=== PATIENT | male | born 2000 | race Caucasian/White ===

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

== ENCOUNTER 2024-11-19 10:28 | Emergency (ER) | payer MEDICAID, OTHER ==
[~2024-11-19] VITALS: Ht 177.8 cm; Wt 71.6 kg
--- NOTE | 2024-11-19 10:44 | Physician Documentation ---
History of Present Illness ~ Chief Complaint: Laceration Stated Complaint: FINGER LAC Time Seen by MD: 10:36 Source: patient Mode of Arrival: POV Exam Limitations: no limitations HPI 24-year-old male with chief complaint left index finger pain with laceration that occurred just prior to arrival. He states he was at work and he cut his finger with his pocket knife accidentally. He is still able to move his finger normally his last tetanus immunization was a year ago. No pre arrival treatment. Tetanus Within 5 Years: No Medication Reconciliation Allergies: Uncoded Allergies: PENICILLIN (Allergy, Intermediate, 12/09/17) Scheduled Meclizine HCl (Meclizine HCl), 1 TAB PO Q8H Scheduled PRN Ondansetron (Zofran Odt), 8 MG PO QID PRN for nausea/vomiting Past Medical History Past Medical History: No Pertinent History Past Surgical History: noncontributory Alcohol Use: None Drug Use: none Lives with: Mother, Father, Family Lives In: Home Occupation: student Review of Systems All Other Systems at this time: Reviewed and Negative Physical Exam Vital Signs: Temperature: 98.0, Source: Temporal, Heart Rate: 78, Respiratory Rate: 16, BP: 122/70, Pulse Oximetry: 98, Weight: 71.600 Oxygen Flow Rate: 0 Physical Exam General Appearance: Alert, WD/WN. NAD. HEENT: NCAT, PERRL, EOMI. Neck: Supple, trachea midline. Cardiovascular: RRR. No m/r/g. Lungs: CTAB. Breathing unlabored Extremities: Left hand index finger there is a 2 cm in length linear vertical laceration that is on the distal pad of the finger. No surrounding erythema, ecchymosis or edema. Areas tender to palpation. Active range motion of finger is normal. Neurological: Alert and oriented x4, normal gait. Psychiatric: Affect congruent with mood. Procedures Laceration/Wound Repair Laceration : Location: left index finger Length (cm): 2 Anesthesia: Lidocaine Prep: irrigated by nurse Debrided: minimal Undermining: none Margins: revised Repaired: skin Wound Repaired With: sutures Suture Size/Type: 4-0, ethilon Dressing Applied: simple Splint Applied?: Yes Type of Splint Applied: DIGIT SPLINT Sling Applied?: Yes Tolerated Procedure Well?: yes, no complications Progress Results/Orders Results/Orders Orders - HARI QUINTERO Laceration/I&D Tray Set Up (11/19/24 10:44) General Nursing Order (11/19/24 10:44) Completed Orders - HARI QUINTERO Lidocaine 1% 30ml Vial (Xylocaine 1% Via (11/19/24 10:45) Vital Signs 11/19/24 11/19/24 10:29 11:56 Temp 98.0 Pulse 78 58 Resp 16 16 B/P (MAP) 122/70 96/48 (64) Pulse Ox 98 98 O2 Flow Rate 0 0 Medical Decision Making Differential Dx:Considerations: Include: Abrasion, Avulsion, Contusion, Laceration, Fracture, Hematoma, Neurovascular injury, Retained foreign body Additional Comments PATIENT MOVING DIGIT NORMALLY SO I HAVE NO CONCERN FOR FRACTURE OR TENDON INJURY. TETANUS IZ DONE A YEAR AGO SO NOT UPDATED TODAY. Departure Time of Disposition: 10:43 Disposition: 01 HOME / SELF CARE / HOMELESS Impression: Primary Impression: Laceration Condition: Stable Discharge Instructions: Laceration Care, Adult, [id number] Additional Instructions: DO NOT GET WET FOR 24HOURS SUTURES NEED TO BE REMOVED IN 7DAYS Referrals: NO PRIMARY CARE PROVIDER (PCP) Education Educated: Patient Educated regarding: diagnosis, treatment, need for follow up Signature Scribe Signature: X Attestation: HARI JONES Nov 19, 2024 10:44
[2024-11-19] MEDS: LIDOcaine 1% 30ml preserv. free vial IJ ONE (11:54)
[2024-11-19 12:23] VITALS: BP 112/55; PULSE 54; RESP 16; TEMP 98; O2SAT 99
== END 2024-11-19 12:10 | disposition home or self-care (01) ==
LOC: ER 10:29
DX: S61.211A Laceration without foreign body of left index finger without damage to nail, initial encounter (principal); Z79.899 Other long term (current) drug therapy; W26.0XXA Contact with knife, initial encounter; Y93.89 Activity, other specified; Y92.89 Other specified places as the place of occurrence of the external cause; Y99.8 Other external cause status
CPT/HCPCS: 12001; 99282; J7030; A6449